=== PATIENT | male | born 1960 | race Caucasian/White ===

== ENCOUNTER 2017-10-04 12:26 | Observation (INO) | payer MEDICARE, MEDICAID ==
[2017-10-04 13:01] LABS: #Basophils 0.1 thou/uL (0.0-0.2); #Eosinphils 0.1 thou/uL (0.0-0.7); #Lymphocytes 3.5 thou/uL (1.20-3.40); #Monocytes 0.4 thou/uL (0.11-0.59); #Neutrophils 3.7 thou/uL (1.40-6.50); %Basophils 0.8 % (0.0-1.0); %Eosinophils 1.4 % (0.0-10.0); %Lymphocytes 45.5 % (21.0-51.0); %Monocytes 4.8 % (0.0-10.0); %Neutrophils 47.6 % (42.0-75.0); Hemoglobin 14.7 g/dL (14.0-18.0); Mean Corpuscular HGB CONC 32.6 g/dL (32.0-36.0); Mean Corpuscular Hemoglobin 30.7 pg (27.0-31.0); Mean Platelet Volume 7.7 fL (7.4-10.4); Platelet Count 201 thou/uL (130-400); RBC Distribution Width 13.3 % (11.5-14.5); White Blood Cell (WBC) Count 7.7 thou/uL (4.8-10.8)
[2017-10-04 13:32] LABS: ALT (SGPT) 14 U/L (8-55); AST (SGOT) 16 U/L (5-34); Albumin 4.5 g/dL (3.5-5.0); Alkaline Phosphatase 92 U/L (40-150); Anion Gap 12 mmol/L (10-20); BUN (Urea Nitrogen) 14 mg/dL (8.4-25.7); Bilirubin, Total 0.4 mg/dL (0.2-1.2); Calc. Creatinine Clearance 0 mL/min (70-130); Calcium 9.7 mg/dL (7.8-10.44); Carbon Dioxide 36 mmol/L (22-29); Chloride 92 mmol/L (98-107); Estimated GFR-MDRD 57; Globulin 2.9 g/dL (2.4-3.5); Glucose 128 mg/dL (70-105); Protein, Total 7.4 g/dL (6.0-8.3); Sodium 137 mmol/L (136-145)
[2017-10-04 13:33] LABS: CKMB 0.9 ng/mL (0-6.6); Troponin I 0.112 ng/mL (< 0.028)
--- NOTE | 2017-10-04 13:51 | RAD ---
SINGLE VIEW OF THE CHEST: Comparison: 09-19-05 History: Dyspnea. FINDINGS: Single view of the chest shows a normal sized cardiomediastinal silhouette. Patient is status post CA BG. There is a pacemaker with its leads in the right atrium and ventricle. There is no evidence of co nsolidation, mass, or pleural effusions. IMPRESSION: No evidence of acute cardiopulmonary disease. POS: [facility]
[2017-10-04] MEDS ORDERED: Potassium Chloride 20 MEQ TAB ONE (17:27)
[2017-10-04 17:42] LABS: Magnesium 1.9 mg/dL (1.6-2.6); Phosphorus 3.6 mg/dL (2.3-4.7)
[2017-10-04 17:47] LABS: Troponin I 0.108 ng/mL (< 0.028)
[2017-10-04 20:09] LABS: Troponin I 0.116 ng/mL (< 0.028)
[2017-10-04] MEDS ORDERED: Ondansetron HCl/PF 4 MG/2 ML Vial IVP PRN (20:11)
[2017-10-04] MEDS ORDERED: Acetaminophen 325 MG TAB PO PRN (20:11)
[2017-10-04] MEDS ORDERED: Ondansetron ODT 4 MG TAB SL PRN (20:11)
[2017-10-04] MEDS ORDERED: Calcium Carbonate 500 MG ChewTAB PO PRN (22:39)
[2017-10-04] MEDS ORDERED: Nitroglycerin 0.4 MG TAB (25 Tab Bottle) PO PRN (22:39)
[2017-10-04] MEDS ORDERED: Senokot 8.6 MG TAB PO PRN (22:39)
[2017-10-04] MEDS ORDERED: hydrALAZINE 20 MG/ML VIAL SLOW IVP PRN (22:43)
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
[2017-10-05] MEDS: Potassium Chloride 20 MEQ in Premix Bag 1 BAG IVPB SCH (01:14)
[2017-10-05] MEDS: Acetaminophen 325 MG TAB PO PRN ×2 (03:58→16:13)
[2017-10-05 06:59] LABS: Anion Gap 15 mmol/L (10-20); BUN (Urea Nitrogen) 17 mg/dL (8.4-25.7); Calc. Creatinine Clearance 74 mL/min (70-130); Calcium 9.6 mg/dL (7.8-10.44); Carbon Dioxide 32 mmol/L (22-29); Chloride 96 mmol/L (98-107); Estimated GFR-MDRD 58; Glucose 136 mg/dL (70-105); Sodium 139 mmol/L (136-145)
[2017-10-05] MEDS ORDERED: Clopidogrel Bisulfate 75 MG TAB PO SCH (09:00)
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
[2017-10-05 15:46] VITALS: BP 125/60; TEMP 98.2
[2017-10-05] MEDS ORDERED: HYDROcodone/Acetaminophen 10/325 mg Tablet PO SCH (16:15)
--- NOTE | 2017-10-05 16:49 | DIS ---
DATE OF DISCHARGE: 10/05/2017 DISCHARGE DISPOSITION: Home. FOLLOWUP: 1. Follow up with primary care physician, Dr. Alarcon next week. 2. Follow up with primary bulk system operator in [place] next week. INPATIENT CONSULTANTS: Cardiology, Dr. Stout. BRIEF HOSPITAL COURSE: The patient is a 57-year-old male with chronic systolic heart failure, leyva ry artery disease status post CABG, diabetes mellitus type 2, presented to the emergency room with sh ortness of breath. Please refer to the history and physical dated 10/04/2017 for further details. The patient was admitted to the hospital with the diagnosis of shortness of breath with questionable anginal equivalent. His troponins were in the indeterminate range with maximum troponin of 0.116. A chest x-ray was negative for infiltrate or edema. He was evaluated by Cardiology, Dr. Stout. Echoca rdiogram was done that showed ejection fraction 30%-35%. The patient was found to have hypokalemia w ith potassium of 3.0 that has been corrected. His potassium on the day of discharge is 4.0. The [facility] ient has been cleared by Cardiology for discharge. FINAL DIAGNOSES: 1. Shortness of breath of unclear etiology. Suspected chronic obstructive pulmonary disease exacerb ation. Patient will continue Plavix. He is allergic to ASPIRIN. There was no indication of acute c oronary syndrome. 2. Chronic systolic heart failure, ejection fraction 30%-35%. The patient has an automatic implanta ble cardioverter-defibrillator. We will continue home diuretic regimen. A base met after 1 week is recommended. 3. Hypothyroidism. We will continue levothyroxine. 4. Hyperlipidemia. We will continue gemfibrozil. 5. Chronic obstructive pulmonary disease. We will continue his home nebulizer treatment with inhale rs. 6. Chronic pain syndrome. 7. History of gout. 8. Chronic kidney disease, stage 3. 9. Tobacco dependence. 10. Status post coronary artery bypass grafting. Plan of care was discussed with the patient in detail. He stated understanding.
== END 2017-10-05 16:48 | disposition home or self-care (01) ==
LOC: ERS 12:26 → 2SW 16:50
PROVIDERS: ADMIT Internal Medicine; ATTEND Internal Medicine
DX: R06.02 Shortness of breath (principal); F03.90 Unspecified dementia, unspecified severity, without behavioral disturbance, psychotic disturbance, mood disturbance, and anxiety; F32.9 Major depressive disorder, single episode, unspecified; E03.9 Hypothyroidism, unspecified; E78.5 Hyperlipidemia, unspecified; F17.210 Nicotine dependence, cigarettes, uncomplicated; E87.6 Hypokalemia; I13.0 Hypertensive heart and chronic kidney disease with heart failure and stage 1 through stage 4 chronic kidney disease, or unspecified chronic kidney disease; E11.22 Type 2 diabetes mellitus with diabetic chronic kidney disease; I50.22 Chronic systolic (congestive) heart failure; N18.3 Chronic kidney disease, stage 3 (moderate); J44.9 Chronic obstructive pulmonary disease, unspecified; G89.4 Chronic pain syndrome; M10.9 Gout, unspecified; Z86.73 Personal history of transient ischemic attack (TIA), and cerebral infarction without residual deficits; Z79.02 Long term (current) use of antithrombotics/antiplatelets; Z79.84 Long term (current) use of oral hypoglycemic drugs; Z79.899 Other long term (current) drug therapy; Z88.8 Allergy status to other drugs, medicaments and biological substances; Z95.810 Presence of automatic (implantable) cardiac defibrillator; Z95.1 Presence of aortocoronary bypass graft
CPT/HCPCS: 71045; 80048; 80053; 82553; 82962 ×2; 83735; 83880; 84100; 84484 ×2; 85025; 85379; 93005; 93306; 94760; 96365; 99285; G0378; 36415; 36416; J3480